=== PATIENT | male | born 1940 | race Caucasian/White ===

== ENCOUNTER → 2021-02-09 | Outpatient (CLI) | payer MEDICARE, OTHER ==
[~2021-02-09] MED LIST: CATHETER FLUSH 10 ML SYR IV PRN; HOLD METFORMIN - RECEIVED CONTRAST 20 ML VIAL IV SCH; IOHEXOL 350 MG/ML 100 ML (OMNIPAQUE 350) VIAL IV ONE; NS 100 ML (IVPB) BAG IV ONE
[2021-02-09 12:15] LABS: CREATININE SERUM 1.11 MG/DL (0.60-1.30); POTASSIUM 3.7 MMOL/L (3.6-5.0)
[2021-02-09 12:44] LABS: CALCIUM 13.1 MG/DL (8.5-10.1)
--- NOTE | 2021-02-09 13:08 | Diagnostic Imaging Report ---
CT CHEST W TECHNIQUE: Multiple contiguous axial images were obtained through the chest with the use of intravenous contrast. All CT scans use one or more of the following dose optimizing techniques: automated exposure control, MA and/or KvP adjustment based on a patient size and exam type, or iterative reconstruction. INDICATION: Hemoptysis. COMPARISON: None available. FINDINGS: Lungs and airway: There is a large infiltrative mass centered in the infrahilar region of the right lower lobe and this has spiculated margins and directly invades the hilum and mediastinum. Central cavitations are present and overall dimensions of the mass are approximately 7.0 x 7.5 x 8.0 cm. In the right lower lobe, there is irregular septal thickening and nodularity; most indicative of lymphangitic carcinomatosis. One of the dominant nodules in the right lower lobe measures 1.3 cm. The mass invades through the major fissure and into the posterior aspect of the right middle lobe within the hilar region. The right mainstem bronchus is completely encased by tumor and narrowed. A left-sided 0.4 cm pulmonary nodule is present. Pleura: Along the posterior aspect of the mass, there is likely invasion of the pleura adjacent to the spine. Trace right pleural effusion. Heart and mediastinum: No supraclavicular or axillary lymphadenopathy. Enlarged left upper paratracheal lymph node measuring 1.0 cm. Right upper paratracheal lymph node measures 1.1 cm. There is soft tissue nodule. The tumor completely encases and occludes the inferior pulmonary vein on the right. Soft tissue nodule extending into the left atrium at the site of the expected pulmonary vein could represent tumor thrombus or bland thrombus. Upper abdomen: No focal abnormality in the upper abdomen that would suggest metastatic disease. Musculoskeletal: No lytic or blastic skeletal lesions. IMPRESSION: 1. Large right lower lobe central invasive lung mass has central cavitation that is most compatible with primary lung cancer. This invades the right hilum, mediastinum and potentially invades the left atrium of the heart. 2. 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 3. The mass directly invades the central aspect of the right upper and middle lobes. 4. Contralateral mediastinal lymphadenopathy. 5. Indeterminate left-sided pulmonary nodule could be a contralateral metastasis. Report was given to Briana by Dr. Juanjo Gómez at 12:51 p.m. on 02/09/2021. Dictated by: Dictated on workstation # [id number]
== END ==
LOC: RAD 12:00
PROVIDERS: ATTEND Family Medicine
DX: R91.8 Other nonspecific abnormal finding of lung field (principal); C77.1 Secondary and unspecified malignant neoplasm of intrathoracic lymph nodes; R59.1 Generalized enlarged lymph nodes
CPT/HCPCS: 36415; 71260; 80048

== ENCOUNTER 2021-02-13 19:16 | Inpatient (IN) | payer MEDICARE, OTHER ==
[~2021-02-13] VITALS: Ht 173 cm; Wt 67.4 kg
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
[2021-02-13] MEDS ORDERED: FLUT1DIS28 (19:27)
[2021-02-13 19:29] LABS: BASOPHILS % (AUTO) 0 % (0-10); EOSINOPHILS % (AUTO) 0 % (0-10); HEMATOCRIT 45 % (40-54); HEMOGLOBIN 14.6 g/dL (13.3-17.7); LYMPHOCYTES # (AUTO) 0.5 10^3/uL (1.0-4.0); LYMPHOCYTES % (AUTO) 2 % (12-44); MEAN CORPUSCULAR HEMOGLOBIN 27 pg (25-34); MEAN CORPUSCULAR HGB CONC 33 g/dL (32-36); MEAN CORPUSCULAR VOLUME 83 fL (80-99); MEAN PLATELET VOLUME 8.9 fL (9.0-12.2); MONOCYTES # (AUTO) 0.9 10^3/uL (0.0-1.0); MONOCYTES % (AUTO) 4 % (0-12); NEUTROPHILS # (AUTO) 19.5 10^3/uL (1.8-7.8); NEUTROPHILS % (AUTO) 93 % (42-75); PLATELET COUNT 455 10^3/uL (130-400)
[2021-02-13] MEDS ORDERED: RT-ALBUTEROL/IPRATROPIUM 3 ML (DUONEB) VIAL INH ONE (19:30)
[2021-02-13 19:47] LABS: LYMPHOCYTES % (MANUAL) 2 %; MONOCYTES % (MANUAL) 3 %; NEUTROPHILS % (MANUAL) 95 %
[2021-02-13 19:48] LABS: RBC MORPH NORMAL
--- NOTE | 2021-02-13 19:48 | Diagnostic Imaging Report ---
INDICATION: Constipation, difficulty urinating. EXAMINATION: Frontal chest was obtained at 7:42 p.m. COMPARISON: There is no prior plain film for comparison. Comparison is made to CT of 02/09/2021. FINDINGS: Patient has had prior sternotomy. The heart is normal in size. Extensive right perihilar lesion is present which appears similar to the CT study of 02/09/2021. There is no pneumothorax or pleural fluid. IMPRESSION: Extensive right perihilar lesion is present, appearing similar to the CT of 02/09/2021. There is no pneumothorax or pleural fluid. There are postoperative changes status post prior sternotomy. Dictated by: Dictated on workstation # [id number]
[2021-02-13 19:52] LABS: ALBUMIN 3.6 GM/DL (3.2-4.5); BILIRUBIN,TOTAL 0.7 MG/DL (0.1-1.0); CREATININE SERUM 1.28 MG/DL (0.60-1.30); POTASSIUM 3.2 MMOL/L (3.6-5.0); TOTAL PROTEIN 7.1 GM/DL (6.4-8.2)
[2021-02-13 19:55] LABS: BILIRUBIN,URINE NEGATIVE (NEGATIVE); CLARITY,URINE CLEAR; COLOR,URINE YELLOW; GLUCOSE, URINE (UA) NEGATIVE (NEGATIVE); KETONES,URINE NEGATIVE (NEGATIVE); LEUKOCYTE ESTERASE ,URINE TRACE (NEGATIVE); NITRITE,URINE NEGATIVE (NEGATIVE); PH,URINE 6.5 (5-9); PROTEIN,URINE TRACE (NEGATIVE)
[2021-02-13] MEDS ORDERED: FLEET ENEMA ADULT 1 EA BTL PR ONE (20:00)
[2021-02-13] MEDS ORDERED: LIDOCAINE UROJET 2% GEL 10 ML PKG TOP ONE (20:00)
[2021-02-13 20:06] LABS: CALCIUM 13.9 MG/DL (8.5-10.1)
[2021-02-13 20:07] LABS: BACTERIA,URINE FEW /HPF; CALCIUM OXALATE CRYSTALS,UR FEW /LPF; SQUAMOUS EPITHELIAL CELL,UR 0-2 /HPF; WBC,URINE 0-2 /HPF
[2021-02-13 20:08] LABS: URIC ACID CRYSTALS,URINE FEW /LPF; YEAST,URINE FEW /HPF
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
[2021-02-13] MEDS ORDERED: CEFEPIME INJECTION 1,000 MG in NS (IVPB) 50 ML IV ONE (20:30)
[2021-02-13] MEDS: polyethylene glycoL POWDER 17 GM (MIRALAX) PACK PO SCH (22:39)
[2021-02-13] MEDS: NS IV 1000 ML 1,000 ML IV SCH (22:39)
[2021-02-13] MEDS ORDERED: RT-ALBUTEROL SULF 2.5 MG/3 ML PRE-MIX VIAL INH PRN (22:45)
[2021-02-14] VITALS (7 sets, daily range): BP systolic 106–157; BP diastolic 60–83
[2021-02-14 06:06] LABS: BASOPHILS % (AUTO) 0 % (0-10); EOSINOPHILS % (AUTO) 0 % (0-10); HEMATOCRIT 42 % (40-54); HEMOGLOBIN 13.4 g/dL (13.3-17.7); LYMPHOCYTES # (AUTO) 0.6 10^3/uL (1.0-4.0); LYMPHOCYTES % (AUTO) 4 % (12-44); MEAN CORPUSCULAR HEMOGLOBIN 27 pg (25-34); MEAN CORPUSCULAR HGB CONC 32 g/dL (32-36); MEAN CORPUSCULAR VOLUME 84 fL (80-99); MEAN PLATELET VOLUME 9.6 fL (9.0-12.2); MONOCYTES # (AUTO) 1.1 10^3/uL (0.0-1.0); MONOCYTES % (AUTO) 7 % (0-12); NEUTROPHILS # (AUTO) 14.4 10^3/uL (1.8-7.8); NEUTROPHILS % (AUTO) 89 % (42-75); PLATELET COUNT 361 10^3/uL (130-400); WHITE BLOOD COUNT 16.3 10^3/uL (4.3-11.0)
[2021-02-14 06:19] LABS: POTASSIUM 2.6 MMOL/L (3.6-5.0)
[2021-02-14 06:20] LABS: CALCIUM 12.8 MG/DL (8.5-10.1)
[2021-02-14 06:24] LABS: CREATININE SERUM 1.13 MG/DL (0.60-1.30)
[2021-02-14] MEDS: CEFEPIME 1,000 MG/NS 50 ML IVPB IV SCH ×6 (06:59→21:54)
[2021-02-14] MEDS: NS IV 1000 ML 1,000 ML IV SCH ×2 (07:00→10:18)
[2021-02-14] MEDS: polyethylene glycoL POWDER 17 GM (MIRALAX) PACK PO SCH ×2 (10:05→21:54)
--- NOTE | 2021-02-14 10:21 | History & Physical-Hospitalist ---
History of Present Illness HPI/Chief Complaint Patient brought by family members reporting increased confusion constipation and inability to urinate. states that she had been attempting to get him to seek medical care for the last several weeks due to increased confusion and decreased appetite. She reports that he is really been going downhill for the last 6 months and has had hemoptysis for at least the last 2 weeks. He had had an outpatient CT scan that they had not heard the results of but did reveal a right perihilar mass and on the outside CAT scan reportedly with cavitary features. Patient has a past 40+ pack year smoking history reportedly quit in 2002 according to the . He is a little bit confused and is extremely hard of hearing making communication with him difficult. He did not appear to be in acute distress and was able to answer questions during the interview denying pain just reporting weakness. reports mentation has not been good for the past month and he has 2 brothers who had recently Alzheimer's dementia and she suspected that he may be following the same path. He has a past history of coronary artery bypass x2 had undergone cardioversion several years ago and I told his he never wanted to let that happen again and he has been a DNR since. Date Seen 02/14/21 Time Seen by a Provider: 09:00 Attending Physician Rebeca Cazares MD PCP Unknown Referring Physician Date of Admission Feb 13, 2021 at 21:00 Home Medications & Allergies Home Medications Reviewed patient Home Medication Reconciliation performed by pharmacy medication reconciliations microwave radio technician and/or nursing. Patients Allergies have been reviewed. Allergies Allergies Coded Allergies No Allergy Information Available (Pkshtlnabb30/6/21) Past Zjgrzeg-Lzmrxc-Decrsa Hx Patient Social History Tobacco Use?: No Use of E-Cig and/or Vaping dev: No Substance use?: No Alcohol Use?: No Pt feels they are or have been: No Immunizations Up To Date Tetanus Booster (TDap): Unknown Current Status Advance Directives: No Communicates: Verbally Primary Language: Slovenian Preferred Spoken Language: Slovenian Is interpretation needed?: No Sensory deficits: Hearing impairment Implanted or Applied Medical D: Stents Review of Systems Constitutional: see HPI Physical Exam Physical Exam Vital Signs Vital Signs - First Documented 02/13/21 19:16 Temp 36.2 Pulse 114 Resp 16 B/P (MAP) 141/87 (105) Pulse Ox 94 O2 Delivery Room Air Capillary Refill : Less Than 3 Seconds Height, Weight, BMI Height: '" Weight: lbs. oz. kg; 22.51 BMI Method: General Appearance: No Apparent Distress, Thin Respiratory: Chest Non Tender, No Accessory Muscle Use, No Respiratory Distress, Other (Right mid and lower lobe rales with vesicular breath sounds coarse breath sounds elsewhere no wheezing) Cardiovascular: Regular Rate, Rhythm, No Edema, No Gallop, No JVD, No Murmur, Normal Peripheral Pulses Gastrointestinal: Normal Bowel Sounds, No Organomegaly, No Pulsatile Mass, Non Tender, Soft Extremity: Normal Capillary Refill, Normal Inspection, Normal Range of Motion, Non Tender, No Calf Tenderness, No Pedal Edema Results Results/Procedures Labs Laboratory Tests 02/13/21 19:21 02/14/21 05:14 Patient resulted labs reviewed. Assessment/Plan Admission Diagnosis #1. 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 As there is no oncology coverage over the weekend we will continue IV saline will initiate IV bisphosphonate for hypercalcemia control and currently they are leaning toward hospice. We will set up palliative care and possible oncology consultation Tuesday. #2. Constipation likely aggravating urinary retention in addition to hypercalcemia continue as needed straight cath. Patient underwent manual disimpaction in the emergency room continue to monitor. Admission Status: Inpatient Order (span 2 midnights) Reason for Inpatient Admission: See admission diagnosis REBECA CAZARES MD Feb 14, 2021 10:21
[2021-02-14] MEDS ORDERED: SENNA W/DOCUSATE (SENOKOT S) TABLET PO ONE (10:30)
[2021-02-14] MEDS ORDERED: PAMIDRONATE 90 MG/10 ML (AREDIA) IV ONE (10:30)
[2021-02-14] MEDS ORDERED: PAMIDRONATE INJECTION 60 MG in NS (IVPB) 250 ML IV ONE (11:00)
[2021-02-14] MEDS: SENNA W/DOCUSATE (SENOKOT S) TABLET PO SCH (21:54)
[2021-02-15 04:00] VITALS: BP 158/72
[2021-02-15] MEDS: CEFEPIME 1,000 MG/NS 50 ML IVPB IV SCH ×6 (05:05→22:16)
[2021-02-15] MEDS: NS IV 1000 ML 1,000 ML IV SCH ×5 (05:07→23:52)
[2021-02-15 07:27] VITALS: BP 153/72
[2021-02-15] MEDS: polyethylene glycoL POWDER 17 GM (MIRALAX) PACK PO SCH ×2 (08:59→20:26)
[2021-02-15] MEDS: SENNA W/DOCUSATE (SENOKOT S) TABLET PO SCH ×2 (08:59→20:26)
[2021-02-15] MEDS: ACETAMINOPHEN 500 MG TAB (TYLENOL) PO PRN ×2 (09:00→22:15)
--- NOTE | 2021-02-15 10:29 | Progress Note - Hospitalist ---
Subjective HPI/CC On Admission Date Seen by Provider: Feb 15, 2021 Time Seen by Provider: 10:22 Patient brought by family members reporting increased confusion constipation and inability to urinate. states that she had been attempting to get him to seek medical care for the last several weeks due to increased confusion and decreased appetite. She reports that he is really been going downhill for the last 6 months and has had hemoptysis for at least the last 2 weeks. He had had an outpatient CT scan that they had not heard the results of but did reveal a right perihilar mass and on the outside CAT scan reportedly with cavitary features. Patient has a past 40+ pack year smoking history reportedly quit in 2002 according to the . He is a little bit confused and is extremely hard of hearing making communication with him difficult. He did not appear to be in acute distress and was able to answer questions during the interview denying pain just reporting weakness. reports mentation has not been good for the past month and he has 2 brothers who had recently Alzheimer's dementia and she suspected that he may be following the same path. He has a past history of coronary artery bypass x2 had undergone cardioversion several years ago and I told his he never wanted to let that happen again and he has been a DNR since. Subjective/Events-last exam Patient has had several bowel movements without evidence for blood denies abdominal pain does report some dyspnea on exertion with nonproductive cough. Denies night sweats chills or fever more alert today. Denies chest pain. Focused Exam Lactate Level 02/13/21 20:43: Lactic Acid Level 2.39*H 02/14/21 00:02: Lactic Acid Level 1.59 Objective Exam Vital Signs Vital Signs Date Time Temp Pulse Resp B/P (MAP) Pulse Ox O2 Delivery O2 Flow Rate FiO2 02/15/21 08:36 Room Air 02/15/21 07:27 36.3 72 16 153/72 (99) 98 1.00 Capillary Refill : Less Than 3 Seconds General Appearance: No Apparent Distress, Other (Coloration significantly improved compared to yesterday transfer text) Respiratory: Chest Non Tender, No Accessory Muscle Use, No Respiratory Distress, Other (Breath sounds are equal bilaterally bit more coarse on the right with mild inspiratory wheeze on the right.) Cardiovascular: Regular Rate, Rhythm, No Edema, No Gallop, No JVD, No Murmur, Normal Peripheral Pulses Gastrointestinal: Normal Bowel Sounds, Non Tender, Soft Results/Procedures Lab Patient resulted labs reviewed. Assessment/Plan Assessment and Plan Assess & Plan/Chief Complaint 1. Right perihilar mass with hypercalcemia compatible with bronchogenic carcinoma in a patient with past smoking history. CAT scan at an outside location reportedly revealed cavitary change in the right hilar mass suggest squamous cell carcinoma. Calcium level pending today but suspect it will be significantly lower. Pamidronate one-time 60 mg IV dose given yesterday. Will consult oncology to discuss options including hospice and whether or not palliative radiation therapy considering that there may be a postobstructive pneumonia already although this is questionable clearly would be high risk for this happening in the near future. Discussed that this may not be agreeable without a tissue diagnosis which would expose him to some risk for pneumothorax but would defer to oncology. 2. Hypokalemia potassium pending today if not improved increase replacement. REBECA CAZARES MD Feb 15, 2021 10:29
[2021-02-15 10:31] LABS: CALCIUM 11.8 MG/DL (8.5-10.1); CREATININE SERUM 1.02 MG/DL (0.60-1.30)
[2021-02-15 12:22] VITALS: BP 139/65
[2021-02-15 16:00] VITALS: BP 145/65
[2021-02-15 19:43] VITALS: BP 138/63
[2021-02-16] VITALS: BP 168/77
[2021-02-16] MEDS: CEFEPIME 1,000 MG/NS 50 ML IVPB IV SCH ×4 (06:10→13:17)
[2021-02-16 06:11] LABS: BASOPHILS # (AUTO) 0.1 10^3/uL (0.0-0.1); BASOPHILS % (AUTO) 0 % (0-10); EOSINOPHILS # (AUTO) 0.1 10^3/uL (0.0-0.3); EOSINOPHILS % (AUTO) 1 % (0-10); HEMATOCRIT 36 % (40-54); HEMOGLOBIN 11.6 g/dL (13.3-17.7); LYMPHOCYTES # (AUTO) 0.5 10^3/uL (1.0-4.0); LYMPHOCYTES % (AUTO) 4 % (12-44); MEAN CORPUSCULAR HEMOGLOBIN 27 pg (25-34); MEAN CORPUSCULAR HGB CONC 32 g/dL (32-36); MEAN CORPUSCULAR VOLUME 85 fL (80-99); MEAN PLATELET VOLUME 9.5 fL (9.0-12.2); MONOCYTES # (AUTO) 0.9 10^3/uL (0.0-1.0); MONOCYTES % (AUTO) 6 % (0-12); NEUTROPHILS # (AUTO) 12.5 10^3/uL (1.8-7.8); NEUTROPHILS % (AUTO) 88 % (42-75); PLATELET COUNT 314 10^3/uL (130-400); WHITE BLOOD COUNT 14.3 10^3/uL (4.3-11.0)
[2021-02-16 06:23] LABS: POTASSIUM 2.7 MMOL/L (3.6-5.0)
[2021-02-16 06:24] LABS: CALCIUM 10.5 MG/DL (8.5-10.1)
[2021-02-16 06:28] LABS: CREATININE SERUM 0.83 MG/DL (0.60-1.30)
[2021-02-16 08:00] VITALS: BP 148/75
[2021-02-16] MEDS: polyethylene glycoL POWDER 17 GM (MIRALAX) PACK PO SCH (08:46)
[2021-02-16] MEDS: SENNA W/DOCUSATE (SENOKOT S) TABLET PO SCH (08:46)
[2021-02-16] MEDS: ACETAMINOPHEN 500 MG TAB (TYLENOL) PO PRN (10:25)
[2021-02-16] MEDS ORDERED: TRAM50TA3 PO (13:08)
[2021-02-16] MEDS: NS IV 1000 ML 1,000 ML IV SCH (13:17)
[2021-02-16] MEDS ORDERED: LISI1TAB46 PO (13:18)
[2021-02-16] MEDS ORDERED: FINA5TAB6 PO (13:18)
[2021-02-16] MEDS ORDERED: MTP25TSR PO (13:19)
[2021-02-16] MEDS ORDERED: METO-333 PO (13:19)
[2021-02-16] MEDS ORDERED: OMEP20CA18 PO (13:20)
[2021-02-16] MEDS ORDERED: RT-ALBUINH IH (13:21)
[2021-02-16] MEDS ORDERED: ACET-2267 PO (13:23)
[2021-02-16] MEDS ORDERED: DIPH25TA65 PO (13:24)
[2021-02-16] MEDS ORDERED: KCL 20 MEQ TAB (K-DUR) PO ONE (13:45)
[2021-02-16] MEDS: POTASSIUM CL 10MEQ/50ML IVPB 50 ML IV SCH ×2 (15:03→16:14)
[2021-02-16 15:09] VITALS: BP 148/75
[2021-02-16 16:00] VITALS: BP 147/70
--- NOTE | 2021-02-16 16:42 | Oncology Consultation ---
Visit Information Visit Information Date of Admission Feb 13, 2021 at 21:00 Attending Physician Neha Cordero MD Admitting Physician Unknown Chief Complaint Right lung mass, hypercalcimia and confusion Interval History Mr. Frederick is a 80 year old white man brought to ER by his for the confusion, general weakness and abdominal pain due to stool impaction. CT scan evaluation showed right lung mass and stool impaction. Lab showed calcium 14. Pt was admitted to IVF and he also got IV permedronate. His confusion is much improved. I was called to discuss with patient and his patient about the diagnosis and treatment options before he finalize the decision of signing up for hospice. "I had a good life and I do not want to be burden to anyone. I don't want to sit around and not able to do anything. I know where I am going after the earthly life and I am not afraid of ." Patient stated. I consulted the patient on: 02/16/21 16:35 Review of Systems Constitutional: see HPI Health Status Allergies Coded Allergies: No Allergy Information Available (Unverified , 02/09/21) Home Medications Acetaminophen (Tylenol Extra Strength) 500 Mg Tablet, 500 MG PO Q8H PRN for PAIN-MILD (1-4), (Reported) Albuterol Sulfate (Proair Hfa) 1 Puff Puff, 2 PUFF IH Q4H PRN for SHORTNESS OF BREATH, (Reported) 1 PUFF = 90 MCG Diphenhydramine HCl (Benadryl Allergy) 25 Mg Tablet, 25 MG PO DAILY PRN for ALLERGIES, (Reported) Finasteride (Finasteride) 5 Mg Tablet, 5 MG PO DAILY, (Reported) Lisinopril/Hydrochlorothiazide (Lisinopril-Hctz 20-12.5 mg Tab) 1 Each Tablet, 1 EACH PO DAILY, (Reported) Metoprolol Tartrate (Metoprolol Tartrate) 25 Mg Tablet, 25 MG PO DAILY, (Reported) Omeprazole (Omeprazole) 20 Mg Capsule.dr, 20 MG PO DAILY PRN for HEARTBURN, (Reported) Tramadol HCl (Tramadol HCl) 50 Mg Tablet, 50 MG PO Q6H PRN for PAIN-MODERATE (5- 7), (Reported) [id number] Hx Patient Social History Alcohol Use?: No Have you traveled recently?: No Immunizations Up To Date Date of Influenza Vaccine: Jan 01, 2021 Physical Exam Vital Signs Vital Signs - First Documented 02/13/21 02/14/21 02/16/21 19:16 23:46 15:09 Temp 36.2 Pulse 114 Resp 16 B/P (MAP) 141/87 (105) Pulse Ox 94 O2 Delivery Room Air O2 Flow Rate 2.00 FiO2 24 Capillary Refill : Less Than 3 Seconds Height, Weight, BMI Height: '" Weight: lbs. oz. kg; 22.51 BMI Method: General Appearance: No Apparent Distress HEENT: PERRL/EOMI Neck: Supple Respiratory: No Accessory Muscle Use, No Respiratory Distress Cardiovascular: Regular Rate, Rhythm Gastrointestinal: Non Tender, Soft Extremity: Non Tender, No Calf Tenderness, No Pedal Edema Neurologic/Psychiatric: Alert, Oriented x3 Data Review Labs Laboratory Tests 02/16/21 05:50 Laboratory Tests 02/13/21 19:21: White Blood Count 21.0H, Platelet Count 455H, Mean Platelet Volume 8.9L, Neutrophils (%) (Auto) 93H, Lymphocytes (%) (Auto) 2L, Neutrophils # (Auto) 19.5H, Lymphocytes # (Auto) 0.5L, Potassium Level 3.2L, Anion Gap 18H, Blood Urea Nitrogen 27H, Glucose Level 157H, Calcium Level 13.9*H, Corrected Calcium 14.2H, Aspartate Amino Transf (AST/SGOT) 37H, B-Type Natriuretic Peptide 181.1H, Procalcitonin 0.16H 02/13/21 19:49: Urine Specific [place] 1.025H, Urine Protein TRACEH, Urine Leukocyte Esterase TRACEH, Urine Calcium Oxalate Crystals FEWH, Urine Uric Acid Crystals FEWH, Urine Bacteria FEWH, Urine Hyaline Casts 5-10H, Urine Mucus SMALLH, Urine Yeast FEWH 02/13/21 20:43: Lactic Acid Level 2.39*H 02/14/21 00:02: 02/14/21 05:14: White Blood Count 16.3H, Red Cell Distribution Width 14.6H, Neutrophils (%) (Auto) 89H, Lymphocytes (%) (Auto) 4L, Neutrophils # (Auto) 14.4H, Lymphocytes # (Auto) 0.6L, Monocytes # (Auto) 1.1H, Potassium Level 2.6L, Blood Urea Nitrogen 26H, Calcium Level 12.8H 02/15/21 10:00: Potassium Level 3.0L, Blood Urea Nitrogen 25H, Calcium Level 11.8H 02/16/21 05:50: White Blood Count 14.3H, Red Cell Distribution Width 14.8H, Neutrophils (%) (Auto) 88H, Lymphocytes (%) (Auto) 4L, Neutrophils # (Auto) 12.5H, Lymphocytes # (Auto) 0.5L, Potassium Level 2.7L, Blood Urea Nitrogen 21H, Calcium Level 10.5H, Red Blood Count 4.27L, Hemoglobin 11.6L, Hematocrit 36L, Chloride Level 109H Impression & Plan Impression & Plan IMP: 1. Right lung mass with hilar lymphadenopathy per CT scan, most likely lung cancer with hypercalcimia and confusion, responded to IVF and permedronate treatment. 2. 80 year old man ECOG score 2 as of 02-16-2021. I had a long and extensive discussion with patient and his daughter as well as his grand children. I explained to the steps of biospy for diagnosis and treatment options after the diagnosis. Pt wanted to quality life rather than quantity. He wants to go home with hospice for comfort care. His grand daughter is in health care and knows local hospice care. She will discuss with the primary care and set up the hospice. Pt wants to go home today. Pt can be discharged from med/onc point of view. AILEEN SULLIVAN MD Feb 16, 2021 16:41
--- NOTE | 2021-02-16 16:50 | Discharge Summary ---
Discharge Summary Hospital Course Hospital Course Date of Admission: Feb 13, 2021 at 21:00 Admission Diagnosis : Constipation Fecal impaction Lung mass Family Physician/Provider: Unknown Date of Discharge: 02/16/21 Discharge Diagnosis: Constipation Fecal impaction resolved Lung mass with suspected lung cancer Hospital Course: 80 yo male admitted with severe constipation and fecal impaction, with additional worsening shortness of breath and weakness for about [address] of chest outpatient on 02/09, and was informed of results- Found to have large mass on CT of chest: "IMPRESSION: 1. Large right lower lobe central invasive lung mass has central cavitation that is most compatible with primary lung cancer. This invades the right hilum, mediastinum and potentially invades the left atrium of the heart. 2. 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 3. The mass directly invades the central aspect of the right upper and middle lobes. 4. Contralateral mediastinal lymphadenopathy. 5. Indeterminate left-sided pulmonary nodule could be a contralateral metastasis." Ryan did not want to pursue procedures or treatment, preferred to go home with hospice services. Was having regular bowel movements and urination on day of d/c. Labs and Pending Lab Test: Laboratory Tests 02/16/21 05:50: White Blood Count 14.3H, Red Blood Count 4.27L, Hemoglobin 11.6L, Hematocrit 36L , Mean Corpuscular Volume 85, Mean Corpuscular Hemoglobin 27, Mean Corpuscular Hemoglobin Concent 32, Red Cell Distribution Width 14.8H, Platelet Count 314, Mean Platelet Volume 9.5, Immature Granulocyte % (Auto) 1, Neutrophils (%) (Auto) 88H, Lymphocytes (%) (Auto) 4L, Monocytes (%) (Auto) 6, Eosinophils (%) (Auto) 1, Basophils (%) (Auto) 0, Neutrophils # (Auto) 12.5H, Lymphocytes # (Auto) 0.5L, Monocytes # (Auto) 0.9, Eosinophils # (Auto) 0.1, Basophils # (Auto) 0.1, Immature Granulocyte # (Auto) 0.1, Sodium Level 142, Potassium Level 2.7L, Chloride Level 109H, Carbon Dioxide Level 25, Anion Gap 8, Blood Urea Nitrogen 21H, Creatinine 0.83, Estimat Glomerular Filtration Rate 89, BUN/Creatinine Ratio 25, Glucose Level 92, Calcium Level 10.5H Microbiology 02/13/21 Blood Culture - Preliminary, Resulted No growth 02/13/21 Urine Culture - Preliminary, Resulted Corynebacterium species YEAST Home Meds Active Reported Benadryl Allergy (Diphenhydramine HCl) 25 Mg Tablet 25 Mg PO DAILY PRN Tylenol Extra Strength (Acetaminophen) 500 Mg Tablet 500 Mg PO Q8H PRN Proair Hfa (Albuterol Sulfate) 1 Puff Puff 2 Puff IH Q4H PRN 1 PUFF = 90 MCG Omeprazole 20 Mg Capsule.dr 20 Mg PO DAILY PRN Metoprolol Tartrate 25 Mg Tablet 25 Mg PO DAILY Lisinopril-Hctz 20-12.5 mg Tab (Lisinopril/Hydrochlorothiazide) 1 Each Tablet 1 Each PO DAILY Finasteride 5 Mg Tablet 5 Mg PO DAILY Tramadol HCl 50 Mg Tablet 50 Mg PO Q6H PRN Assessment/Pt DC Instructions Discharging with hospice services. Discharge Diet: No Restrictions Activity as Tolerated: Yes Discharge Physical Examination Allergies: Coded Allergies: No Allergy Information Available (Unverified , 02/09/21) General Appearance: No Apparent Distress, WD/WN Neurologic/Psychiatric: Alert, Normal Mood/Affect Copy Copies To 1: MAYI BOX MD, BETHANY N MD Feb 16, 2021 16:50
== END 2021-02-16 17:53 | disposition hospice, home (50) | DRG 389 ==
LOC: EDUNIT# 19:16 → ER 19:17 → 4TH 21:00
PROVIDERS: ADMIT Internal Medicine; ATTEND Family Medicine
DX: K56.41 Fecal impaction (principal); C34.2 Malignant neoplasm of middle lobe, bronchus or lung; C78.1 Secondary malignant neoplasm of mediastinum; R64 Cachexia; R59.1 Generalized enlarged lymph nodes; E83.52 Hypercalcemia; Z95.1 Presence of aortocoronary bypass graft; E87.6 Hypokalemia; R33.9 Retention of urine, unspecified; Z68.22 Body mass index [BMI] 22.0-22.9, adult
CPT/HCPCS: 36415; 71045; 74176; 80048; 80053; 81000; 83605; 83880; 84145; 85007; 85025; 85027; 87040; 87088; 94640; 94760; 94761; 96365